=== PATIENT | female | born 1945 | race Caucasian/White ===

== ENCOUNTER 2017-06-25 07:50 | Day surgery (SDC) | payer MEDICARE ==
[~2017-06-25] VITALS: Ht 167.6 cm; Wt 88.0 kg
[~2017-06-25 07:50] MED LIST: COQ10200 MG PO; D31000 UNIT PO; L-LYSINE1000 M1 PO; LIPITOR20 M1 PO; LISINOP/HCTZ1 TA2 PO; OMEGA 31000 MG PO; TEGRETOL XR100 MG PO; WOMENS MULTI VITAMIN PO
[2017-06-25 12:37] VITALS: BP 98/56
== END 2017-06-25 12:55 | disposition home or self-care (01) ==
LOC: ENDO 07:50
PROVIDERS: ATTEND Surgery
PROC: 0DJD8ZZ Inspection of Lower Intestinal Tract, Via Natural or Artificial Opening Endoscopic (ICD-10-PCS; principal; 2017-06-25)
DX: Z12.11 Encounter for screening for malignant neoplasm of colon (principal); I10 Essential (primary) hypertension; E78.00 Pure hypercholesterolemia, unspecified; Q43.9 Congenital malformation of intestine, unspecified; K57.30 Diverticulosis of large intestine without perforation or abscess without bleeding

== ENCOUNTER 2022-06-05 07:23 | Day surgery (SDC) | payer MEDICARE ==
[~2022-06-05] VITALS: Ht 167.6 cm; Wt 88.9 kg
[~2022-06-05 07:23] MED LIST changes: +PROBIOTI2
[2022-06-05 09:31] VITALS: BP 116/71
== END 2022-06-05 09:47 | disposition home or self-care (01) ==
LOC: ENDO 07:23 → ORM 09:15 → ENDO 09:47 → ORM 10:15
PROVIDERS: ATTEND Surgery
PROC: 0DJD8ZZ Inspection of Lower Intestinal Tract, Via Natural or Artificial Opening Endoscopic (ICD-10-PCS; principal; 2022-06-05)
DX: K57.30 Diverticulosis of large intestine without perforation or abscess without bleeding (principal)